=== PATIENT | male | born 1975 | race Caucasian/White ===

== ENCOUNTER 2020-08-05 08:10 | Outpatient (CLI) | payer BC ==
[2020-08-05 10:01] LABS: #Basophils 0.1 10x3/uL (0.0-0.2); #Eosinphils 0.1 10x3/uL (0.0-0.5); #Monocytes 0.6 10x3/uL (0.0-1.1); #Neutrophils 3.3 10x3/uL (1.5-8.4); %Basophils 0.7 % (0.0-2.0); %Eosinophils 1.5 % (0.0-6.0); %Lymphocytes 40.1 % (18.0-47.0); %Monocytes 8.4 % (0.0-10.0); Hemoglobin 15.5 g/dL (13.5-17.5); Mean Corpuscular HGB CONC 34.4 g/dL (32.0-36.0); Mean Corpuscular Hemoglobin 30.2 pg (27.0-33.0); Mean Corpuscular Volume 87.7 fl (81.2-95.1); Mean Platelet Volume 10.9 fl (7.4-10.4); Platelet Count 202 10x3/uL (150-450); RBC Distribution Width 11.8 % (11.5-14.5); Red Blood Cell (RBC) Count 5.14 10x6/uL (4.32-5.72); White Blood Cell (WBC) Count 6.7 10x3/uL (3.5-10.5)
[2020-08-05 10:43] LABS: ALT (SGPT) 26 U/L (8-55); AST (SGOT) 22 U/L (5-34); Albumin 4.4 g/dL (3.5-5.0); Alkaline Phosphatase 74 U/L (40-110); Anion Gap 14 mmol/L (10-20); BUN (Urea Nitrogen) 15 mg/dL (8.9-20.6); Bilirubin, Total 0.6 mg/dL (0.2-1.2); Calc. Creatinine Clearance 0 mL/min (70-130); Carbon Dioxide 24 mmol/L (22-29); Cardiac Risk 5.1 (Less than 4.5); Chloride 104 mmol/L (98-107); Cholesterol 153 mg/dl (< 200 Desired); Glucose 98 mg/dL (70-105); HDL Cholesterol 30 mg/dL (>60 Neg Risk); LDL Cholesterol, Calculated 85 mg/dL; Protein, Total 7.4 g/dL (6.0-8.3); Sodium 137 mmol/L (136-145); Triglycerides 188 mg/dL (Less than 150)
[2020-08-05 11:00] LABS: Calcium 9.5 mg/dL (7.8-10.44)
[2020-08-05 22:36] LABS: SARS-CoV-2 PCR by NAA Not Detected (NotDetected)
== END 2020-08-05 08:11 | disposition home or self-care (01) ==
LOC: LABBT 08:10
PROVIDERS: ATTEND Internal Medicine Cardiovascular Disease
DX: Z01.812 Encounter for preprocedural laboratory examination (principal); R07.9 Chest pain, unspecified; Z20.822 Contact with and (suspected) exposure to COVID-19
CPT/HCPCS: 80053; 80061; 85025; 87635; U0003; U0005

== ENCOUNTER 2021-03-22 13:34 | Outpatient (CLI) | payer BC ==
[2021-03-22 15:58] LABS: #Basophils 0.1 10x3/uL (0.0-0.2); #Eosinphils 0.1 10x3/uL (0.0-0.5); #Monocytes 0.5 10x3/uL (0.0-1.1); #Neutrophils 3.2 10x3/uL (1.5-8.4); %Basophils 0.8 % (0.0-2.0); %Eosinophils 1.1 % (0.0-6.0); %Lymphocytes 39.2 % (18.0-47.0); %Monocytes 8.2 % (0.0-10.0); %Neutrophils 50.5 % (40.0-75.0); Hemoglobin 15.2 g/dL (13.5-17.5); Mean Corpuscular HGB CONC 33.3 g/dL (32.0-36.0); Mean Corpuscular Hemoglobin 29.3 pg (27.0-33.0); Mean Corpuscular Volume 88.1 fl (81.2-95.1); Mean Platelet Volume 10.6 fl (7.4-10.4); Platelet Count 205 10x3/uL (150-450); RBC Distribution Width 11.9 % (11.5-14.5); Red Blood Cell (RBC) Count 5.19 10x6/uL (4.32-5.72); White Blood Cell (WBC) Count 6.2 10x3/uL (3.5-10.5)
[2021-03-22 16:17] LABS: ALT (SGPT) 25 U/L (8-55); AST (SGOT) 22 U/L (5-34); Albumin 4.5 g/dL (3.5-5.0); Alkaline Phosphatase 57 U/L (40-110); Anion Gap 10 mmol/L (10-20); BUN (Urea Nitrogen) 15 mg/dL (8.9-20.6); Calc. Creatinine Clearance 0 mL/min (70-130); Calcium 9.3 mg/dL (7.8-10.44); Carbon Dioxide 27 mmol/L (22-29); Chloride 104 mmol/L (98-107); Glucose 80 mg/dL (70-105); Potassium 4.1 mmol/L (3.5-5.1); Protein, Total 7.5 g/dL (6.0-8.3); Sodium 137 mmol/L (136-145)
[2021-03-23 11:04] LABS: SARS-CoV-2 PCR by NAA Not Detected (NotDetected)
== END 2021-03-22 13:35 | disposition home or self-care (01) ==
LOC: LABBT 13:34
PROVIDERS: ATTEND Internal Medicine Cardiovascular Disease
DX: Z01.812 Encounter for preprocedural laboratory examination (principal); R07.9 Chest pain, unspecified; Z20.822 Contact with and (suspected) exposure to COVID-19
CPT/HCPCS: 80053; 85025; U0003; U0005

== ENCOUNTER → 2021-03-24 | Day surgery (SDC) | payer BC ==
[2021-03-23 11:32] VITALS: BMI 28.5
[~2021-03-24] MED LIST: Adenosine 6 MG/2 ML VIAL ONE; Fentanyl 100 MCG/2 ML VIAL ONE; Heparin 10,000 UNITS/ 10 ML VIAL ONE; Iopamidol 370 76% 100 ML VIAL ONE; Lidocaine 1% (PF) 30 ML VIAL ONE; Metoprolol Tartrate 5 MG/5 ML VIAL ONE; Midazolam HCl 2 mg/2 ml Vial ONE; Nitroglycerin 100MG/250ML BOT 0 ML ONE
== END ==
LOC: CCL 05:52
PROVIDERS: ATTEND Internal Medicine Cardiovascular Disease
PROC: B2111ZZ Fluoroscopy of Multiple Coronary Arteries using Low Osmolar Contrast (ICD-10-PCS; principal; 2021-03-24)
PROC: 4A023N7 Measurement of Cardiac Sampling and Pressure, Left Heart, Percutaneous Approach (ICD-10-PCS; principal; 2021-03-24)
DX: R07.89 Other chest pain (principal); I25.10 Atherosclerotic heart disease of native coronary artery without angina pectoris; E78.00 Pure hypercholesterolemia, unspecified; Z79.82 Long term (current) use of aspirin; Z79.899 Other long term (current) drug therapy; Z91.013 Allergy to seafood
CPT/HCPCS: 93458; 99152; 99153; J0153; J1644; J2001; J2250; J3010; Q9967